=== PATIENT | female | born 1975 | race Two or more races ===

== ENCOUNTER 2017-09-26 09:42 | Emergency (ER) | payer OTHER ==
[~2017-09-26] VITALS: Ht 165.1 cm; Wt 68.0 kg
== END 2017-09-26 13:33 | disposition home or self-care (01) ==
LOC: ER 09:42
DX: B34.9 Viral infection, unspecified (principal)

== ENCOUNTER 2017-11-26 09:44 | Outpatient (CLI) | payer OTHER | END 2017-11-26 10:18 | disposition home or self-care (01) | LOC: SONOGRAMA 09:44 | DX: D50.0 Iron deficiency anemia secondary to blood loss (chronic) (principal); D68.59 Other primary thrombophilia; D51.8 Other vitamin B12 deficiency anemias; E06.3 Autoimmune thyroiditis; E03.8 Other specified hypothyroidism; E04.1 Nontoxic single thyroid nodule ==

== ENCOUNTER → 2017-11-26 | Outpatient (CLI) | payer OTHER | END | disposition home or self-care (01) | LOC: LAB 07:43 | DX: D68.59 Other primary thrombophilia (principal); D51.8 Other vitamin B12 deficiency anemias; D51.1 Vitamin B12 deficiency anemia due to selective vitamin B12 malabsorption with proteinuria; D55.0 Anemia due to glucose-6-phosphate dehydrogenase [G6PD] deficiency; I10 Essential (primary) hypertension; K90.89 Other intestinal malabsorption; E08.8 Diabetes mellitus due to underlying condition with unspecified complications; E06.3 Autoimmune thyroiditis ==

== ENCOUNTER 2018-01-31 09:48 | Outpatient (CLI) | payer OTHER | END 2018-01-31 10:11 | disposition home or self-care (01) | LOC: SONOGRAMA 09:48 | DX: E03.8 Other specified hypothyroidism (principal) ==